=== PATIENT | female | born 1985 | race American Indian/Alaskan Native ===

== ENCOUNTER 2018-05-25 11:22 | Emergency (ER) | payer OTHER ==
[2018-05-25] MEDS ORDERED: TYLENOL PO ONE ×2 (11:36→11:39)
[2018-05-25] MEDS ORDERED: TYLENOL ONE ×2 (11:38→11:40)
--- NOTE | 2018-05-25 13:16 | XRay Report ---
FINAL REPORT PROCEDURE: XR CHEST ROUTINE 2V TECHNIQUE: PA and lateral chest radiographs were obtained. CPT 17247 HISTORY: fever COMPARISON: No prior studies are available for comparison. FINDINGS: Heart: Normal. Mediastinum/Vessels: Normal. Lungs/Pleural space: No infiltrate, effusion, or pneumothorax. Bony thorax: No acute osseous abnormality. Other: IMPRESSION: No pulmonary infiltrates are identified.
--- NOTE | 2018-05-25 13:27 | Emergency Department Report ---
ED General Adult HPI - General Chief complaint: Upper Respiratory Infection Stated complaint: BODY ACHE/FEVER/CHILLS Time Seen by Provider: 05/25/18 13:24 Source: patient Mode of arrival: Ambulatory Limitations: No Limitations - History of Present Illness Initial comments: Toy 6-year-old female complains of arthralgias involving her hips. Knees. She states that she has had a fever. She's had some nonproductive cough. She feels generalized malaise and weakness. She's had a sore throat. She is not vaccinated flu. She does not have any dyspnea. She had no recent travel or sick contacts. Patient states that 3 years ago she was diagnosed with hyperthyroidism. She never had another blood test after her was over which is when they di agnosed her. She stated that she did not want to take the thyroid medicine. I asked her why not; she stated that she did not know. -: Gradual, days(s) Location: lower extremity Radiation: non-radiation Quality: aching Consistency: intermittent Improves with: none Worsens with: none Associated Symptoms: denies other symptoms (except as per HPI) - Related Data Previous Rx's Medication Instructions Recorded Last Taken Type traMADol [Ultram 50 MG tab] 50 mg PO Q6HR PRN #7 tablet 05/25/18 Unknown Rx Allergies Allergy/AdvReac Type Severity Reaction Status Date / Time No Known Allergies Allergy Unverified 05/25/18 11:34 ED Review of Systems ROS: Stated complaint: BODY ACHE/FEVER/CHILLS Other details as noted in HPI Constitutional: denies: chills, fever Eyes: denies: eye pain, eye discharge, vision change ENT: throat pain. denies: ear pain Respiratory: cough. denies: shortness of breath, wheezing Cardiovascular: denies: chest pain, palpitations Endocrine: no symptoms reported Gastrointestinal: denies: abdominal pain, nausea, diarrhea Genitourinary: denies: urgency, dysuria, discharge Musculoskeletal: as per HPI, arthralgia. denies: back pain, joint swelling Skin: denies: rash, lesions Neurological: denies: headache, weakness, paresthesias Psychiatric: denies: anxiety, depression Hematological/Lymphatic: denies: easy bleeding, easy bruising ED Past Medical Hx - Past Medical History Previous Medical History?: No - Surgical History Past Surgical History?: Yes Additional Surgical History: Right ACL surgery 2018 - Social History Smoking Status: Never Smoker Substance Use Type: None - Medications Home Medications: Home Medications Medication Instructions Recorded Confirmed Last Taken Type traMADol [Ultram 50 MG tab] 50 mg PO Q6HR PRN #7 tablet 05/25/18 Unknown Rx ED Physical Exam - General Limitations: No Limitations General appearance: alert, in no apparent distress - Head Head exam: Present: atraumatic, normocephalic - Eye Eye exam: Present: normal appearance. Absent: scleral icterus - ENT ENT exam: Present: normal orophraynx, mucous membranes moist - Neck Neck exam: Present: normal inspection, thyromegaly (possible). Absent: tenderness, meningismus, lymphadenopathy - Respiratory Respiratory exam: Present: normal lung sounds bilaterally. Absent: respiratory distress - Cardiovascular Cardiovascular Exam: Present: regular rate, normal rhythm. Absent: systolic murmur, diastolic murmur, rubs, gallop - GI/Abdominal GI/Abdominal exam: Present: soft, normal bowel sounds. Absent: distended, tende rness, guarding, rebound, rigid - Extremities Exam Extremities exam: Present: normal inspection - Back Exam Back exam: Present: normal inspection - Neurological Exam Neurological exam: Present: alert, oriented X3, CN II-XII intact. Absent: motor sensory deficit - Psychiatric Psychiatric exam: Present: normal affect, normal mood - Skin Skin exam: Present: warm, dry, intact, normal color. Absent: rash ED Course Vital Signs 05/25/18 05/25/18 11:31 13:56 Temperature 101.8 F H 101.1 F H Pulse Rate 87 77 Respiratory 16 18 Rate Blood Pressure 154/76 Blood Pressure 142/84 [Left] O2 Sat by Pulse 100 100 Oximetry - Reevaluation(s) Reevaluation #1: Patient's influenza A test was positive. Her illness is consistent with a viral syndrome. It is not likely that she does have influenza A. She will be treated conservatively at home. She is given information about [facility] home to follow-up in general on her thyroid testing and for continuity care 05/25/18 15:38 ED Medical Decision Making - Lab Data Result diagrams: 05/25/18 13:44 05/25/18 13:44 Laboratory Results - last 24 hr 05/25/18 05/25/18 05/25/18 13:44 13:44 13:44 WBC 6.2 RBC 4.81 Hgb 10.4 Hct 33.7 MCV 70 L MCH 22 L MCHC 31 RDW 17.1 H Plt Count 318 Wise % (Auto) Welder Setter Electron Beam Machine Add Manual Diff Complete Total Counted 100 Seg Neuts % (Manual) 70.0 Band Neutrophils % 8.0 Lymphocytes % (Manual) 19.0 Reactive Lymphs % (Man) 0 Monocytes % (Manual) 2.0 Eosinophils % (Manual) 1.0 Basophils % (Manual) 0 Metamyelocytes % 0 Myelocytes % 0 Promyelocytes % 0 Blast Cells % 0 Nucleated RBC % Not Reportable Seg Neutrophils # Man 4.3 Band Neutrophils # 0.5 Lymphocytes # (Manual) 1.2 Abs React Lymphs (Man) 0.0 Monocytes # (Manual) 0.1 Eosinophils # (Manual) 0.1 Basophils # (Manual) 0.0 Metamyelocytes # 0.0 Myelocytes # 0.0 Promyelocytes # 0.0 Blast Cells # 0.0 WBC Morphology Not Reportable Hypersegmented Neuts Not Reportable Hyposegmented Neuts Not Reportable Hypogranular Neuts Not Reportable Smudge Cells Not Reportable Toxic Granulation Not Reportable Toxic Vacuolation Not Reportable Dohle Bodies Not Reportable Pelger-Huet Anomaly Not Reportable Nohemy Rods Not Reportable Platelet Estimate Not Reportable Clumped Platelets Not Reportable Plt Clumps, EDTA Not Reportable Large Platelets Not Reportable Giant Platelets Not Reportable Platelet Satelliting Not Reportable Plt Morphology Comment Not Reportable RBC Morphology Not Reportable Dimorphic RBCs Not Reportable Polychromasia Not Reportable Hypochromasia 2+ Poikilocytosis 1+ Anisocytosis 2+ Microcytosis Not Reportable Macrocytosis Not Reportable Spherocytes Not Reportable Pappenheimer Bodies Not Reportable Sickle Cells Not Reportable Target Cells Not Reportable Tear Drop Cells Not Reportable Ovalocytes 2+ Helmet Cells Not Reportable [place] Bodies Not Reportable [place] Rings Not Reportable Michael Cells Not Reportable Bite Cells Not Reportable Crenated Cell Not Reportable Elliptocytes Not Reportable Acanthocytes (Spur) Not Reportable Rouleaux Not Reportable Hemoglobin C Crystals Not Reportable Schistocytes Few Malaria parasites Not Reportable Олег Bodies Not Reportable Hem Pathologist Commnt No Sodium 138 Potassium 3.8 Chloride 106.1 Carbon Dioxide 18 L Anion Gap 18 BUN 9 Creatinine 0.6 L Estimated GFR > 60 BUN/Creatinine Ratio 15 Glucose 79 Calcium 8.6 HCG, Qual Negative Urine Color Urine Turbidity Urine pH Ur Specific [place] Urine Protein Urine Glucose (UA) Urine Ketones Urine Blood Urine Nitrite Urine Bilirubin Urine Urobilinogen Ur Leukocyte Esterase Urine WBC (Auto) Urine RBC (Auto) U Epithel Cells (Auto) Urine Bacteria (Auto) Urine Mucus Influenza A (Rapid) Influenza B (Rapid) 05/25/18 05/25/18 14:53 Unknown WBC RBC Hgb Hct MCV MCH MCHC RDW Plt Count Wise % (Auto) Add Manual Diff Total Counted Seg Neuts % (Manual) Band Neutrophils % Lymphocytes % (Manual) Reactive Lymphs % (Man) Monocytes % (Manual) Eosinophils % (Manual) Basophils % (Manual) Metamyelocytes % Myelocytes % Promyelocytes % Blast Cells % Nucleated RBC % Seg Neutrophils # Man Band Neutrophils # Lymphocytes # (Manual) Abs React Lymphs (Man) Monocytes # (Manual) Eosinophils # (Manual) Basophils # (Manual) Metamyelocytes # Myelocytes # Promyelocytes # Blast Cells # WBC Morphology Hypersegmented Neuts Hyposegmented Neuts Hypogranular Neuts Smudge Cells Toxic Granulation Toxic Vacuolation Dohle Bodies Pelger-Huet Anomaly Nohemy Rods Platelet Estimate Clumped Platelets Plt Clumps, EDTA Large Platelets Giant Platelets Platelet Satelliting Plt Morphology Comment RBC Morphology Dimorphic RBCs Polychromasia Hypochromasia Poikilocytosis Anisocytosis Microcytosis Macrocytosis Spherocytes Pappenheimer Bodies Sickle Cells Target Cells Tear Drop Cells Ovalocytes Helmet Cells [place] Bodies [place] Rings [place] Cells Bite Cells Crenated Cell Elliptocytes Acanthocytes (Spur) Rouleaux Hemoglobin C Crystals Schistocytes Malaria parasites Олег Bodies Hem Pathologist Commnt Sodium Potassium Chloride Carbon Dioxide Anion Gap BUN Creatinine Estimated GFR BUN/Creatinine Ratio Glucose Calcium HCG, Qual Urine Color Yellow Urine Turbidity Slightly-cloudy Urine pH 5.0 Ur Specific [place] 1.019 Urine Protein <15 mg/dl Urine Glucose (UA) Neg Urine Ketones 20 Urine Blood Sm Urine Nitrite Neg Urine Bilirubin Neg Urine Urobilinogen < 2.0 Ur Leukocyte Esterase Mod Urine WBC (Auto) 3.0 Urine RBC (Auto) 5.0 U Epithel Cells (Auto) 8.0 Urine Bacteria (Auto) 1+ Urine Mucus 1+ Influenza A (Rapid) Negative Influenza B (Rapid) Positive A - Radiology Data Radiology results: report reviewed (chest x-ray negative per radiologist) interpreted by me: Chest x-ray and pelvic film no acute process Critical care attestation.: If time is entered above; I have spent that time in minutes in the direct care of this critically ill patient, excluding procedure time. ED Disposition Clinical Impression: Influenza A, Viral syndrome Disposition: - TO HOME OR SELFCARE Is pt being admited?: No Does the pt Need Aspirin: No Condition: Stable Instructions: Influenza (ED) Additional Instructions: Increase fluids, Tylenol as needed. Ibuprofen [id number] for aching. If necessary Rx Ultram. Follow-up with the [facility] on your general condition as well as thyroid tests. Return any acute change or problem. Prescriptions: traMADol [Ultram 50 MG tab] 50 mg PO Q6HR PRN #7 tablet PRN Reason: Pain Referrals: DANA FOSTER [Primary Care Provider] - 3-5 Days [facility] [Provider Group] - 2-3 Days Time of Disposition: 15:40
[2018-05-25] MEDS ORDERED: NACL 0.9% 1000 ML 1,000 ML IV ONE (13:35)
[2018-05-25] MEDS ORDERED: TORADOL IV ONE (13:35)
[2018-05-25 13:54] LABS: Hematocrit 33.7 % (30.3-42.9); Hemoglobin 10.4 gm/dl (10.1-14.3); Mean Corpuscular HGB Conc 31 % (30-34); Mean Corpuscular Volume 70 fl (79-97); Platelet Count 318 K/mm3 (140-440); Red Blood Count 4.81 M/mm3 (3.65-5.03); Red Cell Distribution Width 17.1 % (13.2-15.2)
[2018-05-25 14:55] LABS: BUN/Creatinine Ratio 15; Blood Urea Nitrogen 9 mg/dL (7-17); Calcium 8.6 mg/dL (8.4-10.2); Hemolysis Index 18
[2018-05-25 15:07] LABS: Band Neutrophils # (Manual) 0.5 K/mm3; Basophils % (Manual) 0 % (0.0-1.8); Total Cells Counted 100
[2018-05-25 15:08] LABS: Hypochromasia 2+; Ovalocytes 2+
[2018-05-25 15:09] LABS: Anisocytosis 2+; Poikilocytosis 1+; Schistocytes Few
[2018-05-25 15:12] LABS: Bacteria,Urine 1+ /HPF (Negative); Bilirubin,Urine NEG (Negative); Blood,Urine SM (Negative); Color,Urine Yellow (Yellow); Mucus,Urine 1+ /HPF; Protein,Urine <15 mg/dL mg/dL (Negative); Urobilinogen,Urine < 2.0 mg/dL (<2.0)
--- NOTE | 2018-05-25 16:38 | XRay Report ---
FINAL REPORT EXAM: XR PELVIS 1-2V HISTORY: Bilateral hip pain COMPARISON: None. TECHNIQUE: Single frontal view of the pelvis FINDINGS: There is normal alignment without acute fracture or dislocation. The joint spaces are preserved. The overlying soft tissues are intact. IMPRESSION: No acute bony abnormality of the pelvis.
[2018-05-25 17:16] LABS: Free T4 (Free Thyroxine) 0.96 ng/dL (0.76-1.46)
[2018-05-25 17:22] VITALS: BP 147/83
== END 2018-05-25 17:21 | disposition home or self-care (01) ==
LOC: EDBD → ED 11:22
DX: J11.1 Influenza due to unidentified influenza virus with other respiratory manifestations (principal); B34.9 Viral infection, unspecified; E05.90 Thyrotoxicosis, unspecified without thyrotoxic crisis or storm
CPT/HCPCS: 36415; 71046; 72170; 80048; 81001; 84439; 84443; 84703; 85007; 85025; 87400; 96374; 99284; J1885; J7030